=== PATIENT | female | born 1970 | race Caucasian/White ===

== ENCOUNTER → 2018-03-05 | Outpatient (CLI) | payer BC ==
--- NOTE | 2018-03-06 15:42 | MAMMOGRAPHY REPORT ---
BILATERAL DIGITAL SCREENING MAMMOGRAM TOMOSYNTHESIS WITH CAD: 03/05/2018 CLINICAL HISTORY: Routine screening. Patient has no complaints. TECHNIQUE: The study was acquired using full field digital technology and interpreted from soft copy. Breast tomosynthesis in addition to standard 2D mammography was performed. Current study was also ev aluated with a Computer Aided Detection (CAD) system. COMPARISON: Comparison is made to exams dated: 06/13/2015 mammogram, 06/05/2014 mammogram, 3 mammogram, 01/18/2012 mammogram - [facility], and 10/02/2010 mammogram. BREAST COMPOSITION: The tissue of both breasts is heterogeneously dense, which may obscure small mass es. FINDINGS: There have been mild involutional changes comparing to more remote prior mammograms. No new suspicious mass, architectural distortion or cluster of microcalcifications is seen. IMPRESSION: ACR BI-RADS CATEGORY 1: NEGATIVE There is no mammographic evidence of malignancy. A 1 year screening mammogram is recommended.( 019) The patient will receive written notification of the results. Some breast cancers are not detected with mammography. A negative mammographic report should not isabel y biopsy if a clinically suggestive mass is present. Yoli Welsh M.D. ay/:03/05/2018 16:46:58 Tiler: RT Cahru(Lou)(M)(BD), [facility] letter sent: Normal 1/2 BI-RADS Code: ACR BI-RADS Category 1: Negative
== END | disposition home or self-care (01) ==
LOC: C.MAMM 12:01
PROVIDERS: ATTEND Obstetrics & Gynecology
DX: Z12.31 Encounter for screening mammogram for malignant neoplasm of breast (principal)

== ENCOUNTER 2022-08-29 06:25 | Inpatient (IN) ==
--- NOTE | 2022-08-28 08:51 | Anesthesiology Consultation ---
Date of Service August 28, 2022 Assessment & Plan (1) Encounter for pre-operative examination: Chart Review Chart Review: Acceptable Risk for Surgery and Patient NOT seen in Pre Admission Testing -COVID screening: Per PAT nursing assessment on 08/28/22. No known COVID-19 positive contacts or current COVID-19 related symptoms. Travel screen negative. Patient vaccinated for Covid. At surgeon discretion if preop Covid testing being done. Right proximal hamstring tendon repair 09/28/21= Done under [facility] with Grade 2 view with MAC #3. ETT #7. Atraumatic DL x1. History Surgery Operation Date: 08/29/22 08:40 Proposed Procedures p Right Hip Incision and Debridement Sinus Tract and Ischial Tuberosity - Kushal Early MD Operation Date: 08/29/22 08:40 Proposed Procedures p Right Hip Irrigation and Debridement Sinus Tract and Ischial Tuberosity - Kushal Early MD Height/Weight Height: 5 ft 10 in Weight: 86.183 kg Allergies Allergy/AdvReac Type Severity Reaction Status Date / Time No Known Allergies Allergy Verified 07/12/22 20:28 Medications Home Medications Medication Instructions Recorded Confirmed Last Taken acetaminophen 325 mg tablet 650 mg PO QID PRN Pain 08/28/22 08/28/22 Unknown (Tylenol) Past Medical History Medical History (Updated 08/28/22 @ 09:19 by Bárbara Reilly PA-C) Arthritis Endometriosis stage IV History of COVID-19 End of March 2022. mild symptoms + fatigue. home test only. Past Family History Family History Grandmother (Maternal) Breast cancer Father Bladder cancer Other Diabetes Hypertension No family history of adverse response to anesthesia Denies family history of Ovarian cancer Prostate cancer Myocardial infarction Colorectal cancer Uterine cancer Past Surgical History Surgical History History of colonoscopy History of surgery on lower extremity R hamstring surgery S/P cone biopsy of cervix reports >25 yrs ago, thinks it was cone but not 100% S/P laparoscopic hysterectomy [facility]-BS, L oophorectomy 2017 for fibroids, stage 4 endo S/P wisdom tooth extraction Social History Smoking Status: Never smoker Do You Dip or Chew Tobacco: No Hx Alcohol Use: Yes alcohol intake frequency: a few times a month Hx Substance Use: No substance use type: does not use Lab Results Anesthesia Preop Results Results Anesthesia Widget: WBC 8.13 K/ul (4.8-10.8) 08/27/22 Hgb 14.3 g/dl (12.0-16.0) 08/27/22 Hct 41.7 % (37.0-47.0) 08/27/22 Plt 288 K/uL (130-400) 08/27/22 Na 136 mmol/L (136-145) 08/27/22 K 4.1 mmol/L (3.5-5.1) 08/27/22 Cl 102 mmol/L (98-107) 08/27/22 CO2 27 mmol/L (21-32) 08/27/22 BUN 13 mg/dl (6-23) 08/27/22 Creat 0.82 mg/dl (0.6-1.2) 08/27/22 Glucose Level 88 mg/dl (70-99(Fasting)) 08/27/22 Testing Electrocardiogram Date: 09/27/21 Findings: + NSR @ (80bpm) Septal infarct, age undetermined (Pt had right proximal hamstring tendon repair 09/28/21 without noted issues; no cardiac risk factors and good functional status)
[~2022-08-29 06:25] MED LIST: LR 15ML/HR IV SCH; ceFAZolin 2000MG 2,000 MG/15 ML SYR IV SCH
[2022-08-29] MEDS: [UNRECOGNIZED DRUG - REMARK] SCH ×3 (06:51→14:13)
--- NOTE | 2022-08-29 08:25 | History & Physical Bridge Note ---
Date of Service August 29, 2022 History & Physical Bridge Note I have examined the patient, reviewed the History & Physical and in the interval since the performance of the History & Physical I have noted the following changes of clinical significance: no changes noted
[2022-08-29] MEDS ORDERED: fentaNYL citrate 100 MCG/2 ML VIAL IV PRN (08:34)
[2022-08-29] MEDS ORDERED: ePHEDrine sulfate 50 MG/ML AMP IV PRN (08:34)
[2022-08-29] MEDS ORDERED: ATROPINE SULFATE 0.1 MG/ML 10ML SYR IV PRN (08:34)
[2022-08-29] MEDS ORDERED: ONDANSETRON INJ 2 MG/ML 2 ML VIAL IV PRN ×2 (08:34→13:32)
[2022-08-29] MEDS ORDERED: HYDROmorphone INJ 2 MG/ML SYR/VIAL IV PRN (08:34)
[2022-08-29] MEDS ORDERED: NEOSTIGMINE METHYLSULFATE 1 MG/ML 10ML VIAL ONE (09:01)
[2022-08-29] MEDS ORDERED: MIDAZOLAM HCL 1 MG/ML 2ML VIAL ONE (09:01)
[2022-08-29] MEDS ORDERED: fentaNYL citrate 100 MCG/2 ML VIAL ONE (09:01)
[2022-08-29] MEDS ORDERED: DEXAMETHASONE SOD INJ 4 MG/ML VIAL ONE (09:01)
[2022-08-29] MEDS ORDERED: ONDANSETRON INJ 2 MG/ML 2 ML VIAL ONE (09:01)
[2022-08-29] MEDS ORDERED: PROPOFOL IV EMULSION 10 MG/ML 20 ML VIAL IV ONE (09:01)
[2022-08-29] MEDS ORDERED: GLYCOPYRROLATE 0.2 MG/ML VIAL ONE (09:01)
[2022-08-29] MEDS ORDERED: KETOROLAC 30 MG/ML VIAL ONE (10:03)
--- NOTE | 2022-08-29 11:34 | Operative Report ---
Post Operative Report Pre & Post Diagnosis Operation Date: 08/29/22 08:40 <No data on this case meets the specified criteria> Operation Date: 08/29/22 08:40 Pre-Op Diagnosis: Right Hip Abscess Post-Op Diagnosis: Right Hip Abscess I identified the patient and participated in the time-out.: Yes Procedure Operation Date: 08/29/22 08:40 <No data on this case meets the specified criteria> Operation Date: 08/29/22 08:40 Actual Procedures p Right Hip Irrigation and Debridement Sinus Tract and Ischial Tuberosity(Right) - Kushal Early MD Surgeon Sharath Compliance Attorney Luis Fernando Estimated Blood Loss 50 Findings Consistent with Post-Op Diagnosis Specimens See attending dictation Complications none Description of Procedure Patient was taken to the operating room where anesthesia was administered. Patient was prepped and draped in the usual sterile fashion. Please see attending's operative report for specifics of the procedure. I was present for the entire case from initial patient positioning through final wound closure. Assistance was provided in tissue retraction, hemostasis, and final wound closure. Patient was taken to the recovery room in satisfactory condition. I attest to the content of the Intraoperative Record and any orders documented therein. Any exceptions are noted below.
--- NOTE | 2022-08-29 11:35 | Operative Report ---
Post Operative Report Pre & Post Diagnosis Operation Date: 08/29/22 08:40 <No data on this case meets the specified criteria> Operation Date: 08/29/22 08:40 Pre-Op Diagnosis: Right Hip Sinus Trac, Osteomyelitis of ischial tuberosity, Presence of orthopaedic Hardware Post-Op Diagnosis: Right Hip Sinus Tract, Osteomyelitis of ischial tuberosity, Presence of orthopaedic Hardware I identified the patient and participated in the time-out.: Yes Procedure Operation Date: 08/29/22 08:40 <No data on this case meets the specified criteria> Operation Date: 02 08:40 Actual Procedures p Right Hip Irrigation and Debridement to bone (ischial tuberosity), Excision of Sinus Tract, and removal of orthopaedic hardware (Right) - Kushal Early MD Surgeon Kushal Early MD Rn Neonatal Tapan Gould DO Estimated Blood Loss 50 Findings Consistent with Post-Op Diagnosis Specimens 6 sets of cultures 1. Sinus tract 2. Sinus tract #2 3. Deep sinus tract 4. Proximal hamstrings attachment 5. Ischial tuberosity bone 6. Ischial tuberosity tissue 2 tissue sample for permanent specimen 1. Superficial hip wound 2. Sinus tract Anesthesia Type General Complications none Disposition Disposition: Recovery Room Indications 52-year-old female, status post right proximal hamstrings repair in September 2021. She did well after surgery although she had a small area of drainage which eventually resolved with oral antibiotics. Never had any purulence or redness. She was doing well until around [place] of this year. That time she developed an area of drainage from her surgical wound. She had no systemic symptoms or pain at that time. Her exam did not reveal any deep areas of fluctuance and no redness or evidence of cellulitis. We therefore attempted to treat this with a local I&D. Cultures were done. We treated her with oral antibiotics and wound packing. Unfortunately however she continued to drain and had another area of her surgical wound that began to drain. MRI was obtained which demonstrated a sinus tract extending from the ischial tuberosity out to the skin. There is also some bone marrow edema within the ischial tuberosity concerning for osteomyelitis. Inflammatory labs were negative. Having failed extensive nonsurgical management she was candidate for surgical irrigation and debridement, excision of the sinus tract, and removal of orthopedic hardware. I had a long discussion with her about the risk and benefits surgery, alternative surgery, and expected outcomes. After reviewing all these she elected to proceed with surgery. All questions were answered. Informed consent was signed. Description of Procedure Patient was identified in the preoperative holding area where her surgical site was marked. She was brought back to the main operating room where general anesthesia was then administered on the hospital bed. She was carefully rolled into the prone position. All bony prominences were padded. Perioperative antibiotics were administered. She was prepped and draped in the usual sterile fashion. Prior to incision multistrand timeout was called. All in the room were in agreement. Began by ellipsing out her surgical wound with a margin of approximately 8 mm of normal skin on each side of the wound and down to a depth of approximately 2 cm. This tissue was sent for permanent specimen. Meticulous hemostasis was obtained of the subcutaneous tissues and the skin. The sinus tract was visible, and we dissected along the margins of the sinus tract to include some normal tissue on each side as we worked our way underneath the gluteus rené muscle and fascia. The sinus tract was divided into 3 sections, 2 of which were sent for culture and the third which was sent for permanent specimen. We now were all the way down onto the fascia overlying the hamstring tendons. We were able to palpate the sciatic nerve but we did not dissect it out for fear of causing damage to the nerve. We exposed the ischial tuberosity placing a sharp Hohmann along the medial side and a 2 pronged Bankart superiorly. A blunt Hohmann was placed laterally. 3 suture anchors from her previous repair were found adjacent to the ischial tuberosity and appeared to have pulled out of the bone. The sutures from the anchors were still attached to the suture anchors. The deep sinus tract adjacent to the ischial tuberosity attachment was then excised and sent for cultures. A small slit of about 1 cm was made along the lateral aspect of the hamstring tendon attachment which allowed us to access the ischial tuberosity. A pituitary rongeur was then used to remove soft tissue overlying the ischial tuberosity which was sent for culture. The bone was scraped vigorously with a curette and then the pituitary rongeur was used to obtain bony samples from the ischial tuberosity which were also sent for culture, giving us a total of 6 cultures. At this point 1 L of bulb irrigation was used to irrigate out the ischial tuberosity attachment site through the small slit. 6 L of saline was used to irrigate out the remainder of the wound. After the irrigation was complete all scrub personnel changed out their gloves for new gloves and the previously used instruments were set aside. New surgical instruments were used to close the wound. The deep fascial and subcutaneous layer was closed with #1 PDS sutures. The skin was closed with 2-0 Prolene in vertical mattress fashion. Xeroform 4 x 4 and a Tegaderm dressing was applied. Patient was then carefully rolled supine, extubated, and transferred to the recovery in stable condition. Postoperative course: Patient be admitted to the hospital for IV antibiotics. We will consult infectious diseases. We will keep her on empiric vancomycin and Zosyn for broad-spectrum IV antibiotic coverage. She can weight-bear as tolerated with a walker or crutches. Aspirin for DVT prophylaxis. I attest to the content of the Intraoperative Record and any orders documented therein. Any exceptions are noted below.
--- NOTE | 2022-08-29 11:48 | Anesthesiology Progress Note ---
Date of Service August 29, 2022 Anesthesia Post Procedure Vital Signs Vital Signs: Temp Pulse Pulse Resp BP Pulse Ox O2 Del Method 08/29/22 11:40 65 20 130/81 100 Room Air 08/29/22 11:30 85 16 136/76 100 Room Air 08/29/22 11:26 36.3 C L 84 16 134/83 100 Oxymask 08/29/22 06:51 37 C 84 18 158/97 H 98 Room Air O2 Flow Rate 08/29/22 11:40 08/29/22 11:30 08/29/22 11:26 6 08/29/22 06:51 Pain Intensity Right Leg: Pain Intensity: 1 Right Upper Leg: Pain Intensity: 0 Transfer of Care Handoff Completed per policy Notes Mental Status: alert / awake / arousable and participated in evaluation Patient Amnestic to Procedure: Yes Nausea / Vomiting: adequately controlled Pain: adequately controlled Airway Patency, RR, SpO2: stable & adequate BP & HR: stable & adequate Hydration State: stable & adequate Anesthetic Complications: no major complications apparent and Pt Satisfied with anesthetic care
--- NOTE | 2022-08-29 12:51 | Anesthesiology Progress Note ---
Date of Service August 29, 2022 Anesthesia Post Procedure Vital Signs Vital Signs: Temp Pulse Pulse Resp BP Pulse Ox O2 Del Method 08/29/22 12:30 64 18 130/85 98 Room Air 08/29/22 12:15 60 20 117/89 99 Room Air 08/29/22 12:00 36.6 C 74 18 123/83 97 Room Air 08/29/22 11:50 63 20 121/84 97 Room Air 08/29/22 11:40 65 20 130/81 100 Room Air 08/29/22 11:30 85 16 136/76 100 Room Air 08/29/22 11:26 36.3 C L 84 16 134/83 100 Oxymask 08/29/22 06:51 37 C 84 18 158/97 H 98 Room Air O2 Flow Rate 08/29/22 12:30 08/29/22 12:15 08/29/22 12:00 08/29/22 11:50 08/29/22 11:40 08/29/22 11:30 08/29/22 11:26 6 08/29/22 06:51 Pain Intensity Right Leg: Pain Intensity: 1 Right Upper Leg: Pain Intensity: 0 Transfer of Care Handoff Completed per policy Notes Mental Status: alert / awake / arousable and participated in evaluation Patient Amnestic to Procedure: Yes Nausea / Vomiting: adequately controlled Pain: adequately controlled Airway Patency, RR, SpO2: stable & adequate BP & HR: stable & adequate Hydration State: stable & adequate Anesthetic Complications: no major complications apparent and Pt Satisfied with anesthetic care
[2022-08-29] MEDS ORDERED: diphenhydrAMINE Capsule 25 MG CAP PO PRN (13:32)
[2022-08-29] MEDS ORDERED: diphenhydrAMINE 50 MG/ML VIAL IV PRN (13:32)
[2022-08-29] MEDS ORDERED: oxyCODONE HCL IR 5 MG TAB (IMMEDIATE RELEASE) PO PRN (13:32)
[2022-08-29] MEDS ORDERED: VANCOMYCIN CONSULT ACTIVE PRN (13:32)
[2022-08-29] MEDS ORDERED: bisacodyL 10 MG SUPP PR PRN (13:32)
[2022-08-29] MEDS ORDERED: HYDROmorphone INJ 1 MG/ML SYRINGE IV PRN (13:32)
[2022-08-29] MEDS ORDERED: NALOXONE HCL 0.4 MG/1 ML VIAL/CARP IV PRN (13:32)
[2022-08-29] MEDS ORDERED: HYDROmorphone INJ 0.5 MG/0.5 ML SYR IV PRN (13:32)
[2022-08-29] MEDS ORDERED: PIPERACILLIN/TAZOBACTAM 3.375 GM (over 30 mins) IV ONE (14:00)
[2022-08-29] MEDS: SODIUM CHLORIDE 0.9% 1000ML 1,000 ML IV SCH (14:22)
[2022-08-29] MEDS ORDERED: VANCOMYCIN HCL 2,250 MG in SODIUM CHLORIDE 0.9% 500 ML IV SCH (14:30)
--- NOTE | 2022-08-29 14:34 | Pharmacy Report ---
Pharmacy PK ABX Note - Date of Service August 29, 2022 - Assessment and Plan Assessment 52 year old F admitted for R hip abscess incision and drainage. Patient had hamstring tendon repair surgery in 09/2021 and since then developed this wound infection. R leg wound cultures pending. Patient was started on Zosyn therapy on admission. Post op today, she is started on Vancomycin empirically. Recently, patient was on Keflex for the same infection. Plan Vancomycin * Loading dose: 2250 mg (25 mg/kg) IV x 1 * Maintenance dose: 1250 mg IV every 12 hours * Regimen is predicted to achieve target AUC/ANILA of 400-600 mg/L.hr * Trough level will be ordered for: 08/30/22 before 3rd maintenance dose. Pharmacy will continue to follow and will adjust dose/frequency as necessary. Thank you. Pharmacy has transitioned to AUC monitoring for vancomycin. AUC/ANILA is the preferred PK/PD target and is associated with decreased risk of nephrotoxicity compared to traditional trough targets.
[2022-08-29] MEDS: ACETAMINOPHEN 500 MG TAB PO SCH ×2 (14:56→21:01)
[2022-08-29] MEDS: PIPERACILLIN/TAZOBACTAM 3.375 GM in DEXTROSE 5% 100 ML IV SCH (20:53)
[2022-08-29] MEDS: ASPIRIN 81 MG ECTAB PO SCH (20:55)
[2022-08-29] MEDS: SENNA 8.6 MG TAB PO SCH (20:55)
[2022-08-29] MEDS: DOCUSATE SODIUM 100 MG CAP PO SCH (21:08)
[2022-08-30] MEDS: SODIUM CHLORIDE 0.9% 1000ML 1,000 ML IV SCH (01:34)
[2022-08-30] MEDS: VANCOMYCIN HCL 1,250 MG in SODIUM CHLORIDE 0.9% 250 ML IV SCH ×2 (01:35→14:11)
[2022-08-30] MEDS: ACETAMINOPHEN 500 MG TAB PO SCH ×3 (05:49→21:39)
[2022-08-30] MEDS: PIPERACILLIN/TAZOBACTAM 3.375 GM in DEXTROSE 5% 100 ML IV SCH ×3 (05:51→22:55)
[2022-08-30 06:05] LABS: Basophils # (auto) 0.02 K/uL (0-0.2); Basophils % (auto) 0.2 %; Hematocrit (blood only) 31.3 % (37.0-47.0); Hemoglobin 10.9 g/dl (12.0-16.0); Immature Granulocytes # (auto) 0.06 K/uL (0.01-0.20); Immature Granulocytes % (auto) 0.6 %; Lymphocytes # (auto) 1.48 K/uL (1.2-3.4); Lymphocytes % (auto) 14.1 %; Mean Corpuscular Hemoglobin 30.6 pg (25.0-34.0); Mean Corpuscular Hgb Conc 34.8 g/dL (32.0-36.0); Mean Corpuscular Volume 87.9 fL (80.0-100.0); Mean Platelet Volume 8.9 fL (9.4-12.4); Monocytes # (auto) 0.72 K/uL (0.11-0.59); Monocytes % (auto) 6.8 %; Neutrophils # (auto) 8.24 K/uL (1.40-6.50); Neutrophils % (auto) 78.3 %; Platelet Count 226 K/uL (130-400); RDW Coefficient of Variation 12.4 % (11.5-14.5); RDW Standard Deviation 40.2 fL (36.4-46.3); Red Blood Count 3.56 M/uL (4.20-5.40); White Blood Count 10.52 K/ul (4.8-10.8)
--- NOTE | 2022-08-30 09:15 | Orthopedic Progress Note ---
Date of Service August 30, 2022 Assessment & Plan (1) Osteomyelitis of right side of pelvis: Plan: Continue empiric Vancomycin and Zosyn. Appreciate pharmacy assistance with vancomycin dosing. Follow cultures Infectious diseases consulted PICC line to be placed likely tomorrow. WBAT with walker ASA for DVT prophylaxis Case management consulted for assistance with home antibiotics, PICC line cares May discharge home once PICC line in place and she is set up for home health with antibiotics. Admission and Anticipated Discharge Date Admission Date: August 29, 2022 Subjective Patient doing well this morning. Denies fevers/chills, cp, sob. Pain under good control. Her dressing is saturated. Physical Exam Physical Exam: R hip exam: dressing was saturated with blood and was removed. No active drainage. New dressing applied. Distally NVI. Results & Data ([facility]) Vital Signs (Past 12 Hours) Vital Signs Temp Pulse Resp BP Pulse Ox O2 Del Method 08/30/22 07:24 36.6 C 67 16 126/79 100 Room Air 08/30/22 04:20 36.6 C 66 18 127/79 99 Room Air 08/29/22 23:07 36.8 C 63 18 111/70 98 Room Air Laboratory Results Gram stain did not show organisms on any of the 6 specimens. Cultures pending.
[2022-08-30] MEDS: ASPIRIN 81 MG ECTAB PO SCH ×3 (09:41→21:38)
[2022-08-30] MEDS: MULTIVITAMIN TAB PO SCH (09:41)
[2022-08-30] MEDS: DOCUSATE SODIUM 100 MG CAP PO SCH ×2 (09:42→21:38)
[2022-08-30] MEDS ORDERED: VANCOMYCIN LEVEL ONE (13:00)
[2022-08-30] MEDS: MAGNESIUM HYDROXIDE SUSP 30 ML UDC PO PRN (16:50)
[2022-08-30] MEDS: ASCORBIC ACID 500 MG TAB PO SCH (21:37)
[2022-08-30] MEDS: SENNA 8.6 MG TAB PO SCH (21:38)
[2022-08-31] MEDS: VANCOMYCIN HCL 1,250 MG in SODIUM CHLORIDE 0.9% 250 ML IV SCH (02:52)
[2022-08-31] MEDS: PIPERACILLIN/TAZOBACTAM 3.375 GM in DEXTROSE 5% 100 ML IV SCH (05:59)
[2022-08-31] MEDS: ACETAMINOPHEN 500 MG TAB PO SCH ×3 (06:02→22:10)
[2022-08-31] MEDS: MAGNESIUM HYDROXIDE SUSP 30 ML UDC PO PRN (06:09)
[2022-08-31 07:39] LABS: Creatinine Clr Calc Pharmacy 112.3 ml/min; Est GFR (African American) 113.8 ml/min; Est GFR (Non-African American) 98.2 ml/min
[2022-08-31] MEDS: ADVANCED PROBIOTIC 1250 MG CAPSULE PO SCH (09:06)
[2022-08-31] MEDS: MULTIVITAMIN TAB PO SCH (09:06)
[2022-08-31] MEDS: ASCORBIC ACID 500 MG TAB PO SCH ×2 (09:06→21:55)
[2022-08-31] MEDS: ASPIRIN 81 MG ECTAB PO SCH ×4 (09:06→21:55)
[2022-08-31] MEDS: DOCUSATE SODIUM 100 MG CAP PO SCH ×2 (09:44→22:10)
--- NOTE | 2022-08-31 10:58 | Orthopedic Progress Note ---
Date of Service August 31, 2022 Assessment & Plan (1) Osteomyelitis of right side of pelvis: Plan: Discontinue vancomycin and Zosyn We will begin giving her cefepime 2 g through the IV as recommended per infectious disease Blood cultures are still pending Consent for PICC line signed. Placement will take place after blood cultures have finalized and are negative. Prescriptions written for cefepime 2 g every 8 hours for the next 6 weeks through the PICC line. I also wrote prescriptions for weekly CBC, CMP, CRP and sed rate WBAT with walker ASA for DVT prophylaxis Pain control with p.o. medication Case management consulted for assistance with home antibiotics, PICC line cares May discharge home once PICC line in place and she is set up for dressing changes. Follow-up with [facility] orthopedics as previously scheduled With questions contact our clinic at [phone] Admission and Anticipated Discharge Date Admission Date: August 29, 2022 Subjective This 52-year-old female seen today day 2 status post Right Hip Irrigation and Debridement Sinus Tract and Ischial Tuberosity. She states she is doing very well. She denies any significant pain. She states that her only issue is that she is having a reaction to the vancomycin causing redness of her veins. She is tolerating the Zosyn without issue. Currently she denies chest pain, shortness of breath, fever, chills, sweats, nausea, vomiting, diarrhea or difficulty voiding. She also denies any numbness or tingling in her right lower extremity. She is very anxious to be discharged home hopefully early tomorrow. Review of Systems Review of Systems: All systems reviewed & are unremarkable except as noted in Subjective Physical Exam Physical Exam: Right posterior hip: Dressing was removed and a new one was applied consisting of Xeroform gauze, sterile 4 x 4's folded in half and Tegaderms. Sutures were clean dry and intact. There is no drainage from the incision site. Patient is able to perform an active straight leg raise test. She was able to flex her hip to 90 degrees with only a little tension. She had no pain with light passive internal or external hip rotation. Her quad strength is 4+ out of 5. She was neurovascular intact in the right lower extremity. There is no palpable fluctuance over or around the incision site. Results & Data ([facility]) Vital Signs (Past 12 Hours) Vital Signs Temp Pulse Resp BP Pulse Ox O2 Del Method 08/31/22 07:54 36.8 C 69 18 147/91 H 100 Room Air 08/30/22 23:15 36.6 C 68 18 120/78 96 Room Air Diagnostic Findings Laboratory Results WBC 10.52 K/ul (4.8-10.8) 08/30/22 05:20 RBC 3.56 M/uL (4.20-5.40) L 08/30/22 05:20 Hgb 10.9 g/dl (12.0-16.0) L 08/30/22 05:20 Hct 31.3 % (37.0-47.0) L 08/30/22 05:20 MCV 87.9 fL (80.0-100.0) 08/30/22 05:20 MCH 30.6 pg (25.0-34.0) 08/30/22 05:20 MCHC 34.8 g/dL (32.0-36.0) 08/30/22 05:20 RDW Std Deviation 40.2 fL (36.4-46.3) 08/30/22 05:20 RDW Coeff of [place] 12.4 % (11.5-14.5) 08/30/22 05:20 Plt Count 226 K/uL (130-400) 08/30/22 05:20 MPV 8.9 fL (9.4-12.4) L 08/30/22 05:20 Immature Gran % (Auto) 0.6 % 08/30/22 05:20 Neut % (Auto) 78.3 % 08/30/22 05:20 Lymph % (Auto) 14.1 % 08/30/22 05:20 [place] % (Auto) 6.8 % 08/30/22 05:20 Eos % (Auto) 0.0 % 08/30/22 05:20 Baso % (Auto) 0.2 % 08/30/22 05:20 Neut # (Auto) 8.24 K/uL (1.40-6.50) H 08/30/22 05:20 Lymph # (Auto) 1.48 K/uL (1.2-3.4) 08/30/22 05:20 [place] # (Auto) 0.72 K/uL (0.11-0.59) H 08/30/22 05:20 Eos # (Auto) 0.00 K/uL (0-0.50) 08/30/22 05:20 Baso # (Auto) 0.02 K/uL (0-0.2) 08/30/22 05:20 Immature Gran # (Auto) 0.06 K/uL (0.01-0.20) 08/30/22 05:20 ESR < 1 mm/hr (0-30) 08/30/22 05:20 Creatinine 0.70 mg/dl (0.6-1.2) 08/31/22 07:01 Est Cr Clr Drug Dosing 112.3 ml/min 08/31/22 07:01 Est GFR ( Amer) 113.8 ml/min 08/31/22 07:01 Est GFR (Non-Af Amer) 98.2 ml/min 08/31/22 07:01 C-Reactive Protein 0.78 mg/dl (0-0.5) H 08/30/22 05:20 SARS-CoV-2, RNA, NAAT NEGATIVE (NEGATIVE) 08/29/22 06:35
[2022-08-31] MEDS ORDERED: VANCOMYCIN LEVEL ONE (13:00)
[2022-08-31] MEDS: ERTAPENEM SODIUM 1,000 MG in SYRINGE 0 ML IV SCH (13:12)
[2022-08-31] MEDS ORDERED: CEFEPIME 2,000 MG in SYRINGE 0 ML IV SCH (14:00)
--- NOTE | 2022-08-31 17:03 | Discharge Summary ---
Date of Service August 31, 2022 Admission HPI Per Admitting Provider Patient is a 52-year-old female who is a known patient to Dr. Early. She is here for preoperative history and physical examination for irrigation and debridement of right hip sinus tract and ischial tuberosity on 08/29/[address] Early. She explains she has a history of having a hamstring tendon repaired in September 2021. She states postoperatively she had issues with the incision healing properly. She states after March she seemed to be doing well however this June she started to have an area over the incision that became red and swollen. She states she was seen in [facility] where they tried aspirating with a needle and was unsuccessful. She states the next day she was leaving to travel for the holidays to [place] and when she returned back to [place] she was seen by Dr. Early in the office. At that time she had that area of concern lanced in the office. She states the area was irrigated and she was placed on oral antibiotics. She states since that time she has continued to have drainage from the incision. She states her has been packing it and changing the dressing since July 18, 2022. She states she has mild irritation from the dressing being placed on daily. She states she has some numbness surrounding this area. She states she continues to have bloody drainage. She states she had pus initially. She had recently been tried on Bactrim however she developed a rash and became very nauseous and bloating and stomach pains so this was stopped. She was on Keflex for a period of time. She states she just recently finished her Keflex antibiotic on Saturday last week. She denies being on any antibiotic at this time. She denies any fever or chills or night sweats. She states the leg is uncomfortable at times she states its not very painful. She tries to avoid putting pressure over the area and will sit with her weight shifted. She does have some discomfort in the hamstring with bending the knee at times. She states this seems to be more recent. She feels that the right lower extremity is more weak when compared to the left. She recently had an MRI and discussed results with Dr. Early via phone. Due to the imaging findings and after a lengthy course of conservative treatment patient will be taken to the OR. She denies any history of a bleeding disorder, DVT, MRSA infection, cardiac or pulmonary issues. Admission Exam Per Admitting Provider General: Pt is alert and oriented x3. Wearing a mask. No acute distress. Well-dressed, well-nourished . HEENT: Head: Atraumatic, normocephalic. Eyes: Extraocular movements intact. Pupils equal, round, and reactive to light. Sclerae are normal. Ears: Hearing is grossly normal. Nose: Nares are patent bilaterally. Throat: Oropharynx clear. Mucous membranes moist. Good dentition. Uvula midline. Neg for erythema Neck: Supple. No lymphadenopathy. Nontender to palpation. Full range of motion. Lungs: Clear to auscultation bilaterally. No adventitious sounds. No accessory muscle use. Heart: Regular rate and rhythm. Normal S1, S2. No murmurs, rubs, or gallops appreciated. Abdomen: Soft, nontender, nondistended. Normal bowel sounds heard in all 4 quadrants. Musculoskeletal: Posterior hamstring area has a dressing with serosanguineous drainage. This is covered negative for any erythema surrounding the area. Iodoform is intact. Negative for any fluctuant areas surrounding this area however this area is tender mildly indurated. Patient is able to actively flex and extend knee. This is equal to the left. Able to fully actively dorsiflex and plantarflex ankles. Gait is normal without assistive device. Integumentary:normal in color neg for abrasion or rash Neuro: Cranial nerves II-XII grossly intact Psychiatric: Good eye contact, normal mood and affect, cooperative during exam, nonsuicidal Principal Diagnosis irrigation and debridement of right hip sinus tract and ischial tuberosity Discharge Exam Right posterior hip: Dressing was removed and a new one was applied consisting of Xeroform gauze, sterile 4 x 4's folded in half and Tegaderms. Sutures were clean dry and intact. There is no drainage from the incision site. Patient is able to perform an active straight leg raise test. She was able to flex her hip to 90 degrees with only a little tension. She had no pain with light passive internal or external hip rotation. Her quad strength is 4+ out of 5. She was neurovascular intact in the right lower extremity. There is no palpable fluctuance over or around the incision site. Discharge Data Allergies Allergy/AdvReac Type Severity Reaction Status Date / Time Sulfa (Sulfonamide Allergy Intermediate Rash Verified 08/29/22 06:47 Antibiotics) Consultations 08/29/22 13:32 Consult Infectious Diseases Routine Procedures Performed Operation Date: 08/29/22 08:40 <No data on this case meets the specified criteria> Operation Date: 08/29/22 08:40 Actual Procedures p Right Hip Irrigation and Debridement Sinus Tract and Ischial Tuberosity(Right) - Kushal Early MD Hospital Course (1) Osteomyelitis of right side of pelvis: Patient had an uneventful 2 night stay following her procedure. She states that she really has no pain. She will most likely be discharged home later this evening or early tomorrow on ertapenem 1 g through her PICC line daily for the next 6 weeks. We will also monitor her CBC, CMP, CRP and sed rate for the next 6 weeks on the weekly basis. Discontinue vancomycin and Zosyn We will begin giving her Ertapenem 1 gram daily through the PICC line as recommended per infectious disease Consent for PICC line signed. Placement will take place after blood cultures have finalized and are negative. Prescriptions written for Ertapenem 1 gram daily for the next 6 weeks through the PICC line. I also wrote prescriptions for weekly CBC, CMP, CRP and sed rate WBAT with walker ASA for DVT prophylaxis Pain control with p.o. medication Case management consulted for assistance with home antibiotics, PICC line cares May discharge home once PICC line in place and she is set up for dressing changes. Follow-up with [facility] orthopedics as previously scheduled With questions contact our clinic at [phone] Total Time Total Time Spent Total Time Spent (In Minutes): 25 mins Discharge Plan Discharge Items Patient Disposition: Home - Self-Care Reason For Visit: Right Hip Abscess Discharge Diagnosis: Right Hip Irrigation and Debridement Sinus Tract and Ischial Tuberosity Activity: As commented below Lifting: None Bathing: Keep incision dry Bathing Comment: May shower tomorrow Sexual Activity: Wait until after follow-up appointment Exercise/Sports: Wait until after follow-up appointment Driving/Machine Use: No driving until cleared by docketing specialist Weightbearing: Right weightbearing Weightbearing Comment: As tolerated with walker assistance Non-emergency contact: Surgeon Call non-emergency contact if: you have any medication questions, your pain is not controlled, your temperature is above 101.5, your wound has increased redness, your wound has increased drainage and your wound pain has increased Follow-up/Referrals: Paty Torres PA-C [Primary Care Provider] - Diet: Regular Addtl Attending Provider Instructions: Post-operative Instructions Dear Patient and Family/Friends, Before you are discharged from the hospital, it is important to know what to expect when you get home after surgery. To that end, we have created this sheet of discharge instructions which covers many commonly asked questions. Make sure you go through this sheet in its entirety with your nurse before you are discharged. Please note that we will go over the specifics of your surgery and recovery when you return for your first post-operative visit. Sincerely, Dr. Early Pain Expect to be in a fair amount of pain after surgery. Remember, our goal is not to eliminate your pain, but to make it tolerable. It is a good idea to stay ahead of your pain by taking the medications you were prescribed once you get home. Typically, the pain starts improving 3-7 days after surgery. You should start weaning off the narcotic pain medication (oxycodone, hydrocodone, hydromorphone, morphine) as soon as your pain improves. Please call our office if your pain is not adequately controlled. Ice Ice your operative site at least 5 times a day for 15-30 minutes at a time. Make sure you have a thin cloth between the ice or cooling unit and your skin to prevent marshall bite. This is especially important if you received a nerve block. Continue icing your operative site for the first 5-7 days after surgery, then as needed. Diet/Nausea/Vomiting Start by drinking clear liquids and eating crackers. If you can tolerate this, then you may resume your normal diet. If you feel nauseated or vomit, take Zofran/ondansetron (if prescribed). Please call our office if you have intractable nausea or vomiting, or, if after hours, you may go to the Emergency Room for help. Constipation Constipation is a common side effect of narcotic pain medication. If you have not had a bowel movement within 2 days after surgery, we recommend purchasing an over the counter laxative such as Milk of Magnesia, Dulcolax, or Miralax from a local pharmacy, and taking it as instructed. Call our clinic if any questions. Nerve block The anesthesia team sometimes places a nerve block to help with post-operative pain control. This results in significant numbness and inability to move the extremity. The nerve block usually wears off in 8-12 hours, but sometimes can last up to 24 hours. Please call our office if you are still unable to move your extremity after 24 hours, unless you received a pain pump to take home. Nerve blocks typically wear off quickly, so start taking pain medication as soon as you start feeling soreness near your surgical site. Weight bearing and Range of Motion. Do not bear any weight through your operative extremity immediately after surgery. If you had upper extremity surgery, do not lift anything with that arm. If you are in a knee brace, keep it locked in place until your follow-up. We will discuss your weight bearing, range of motion, and lifting restrictions in detail at your first post-operative appointment. Continuous Passive Motion (CPM) Machine If you were prescribed a CPM machine, it will start after your first post- operative appointment, at which time we will give you instructions on the range of motion settings and duration of treatment Physical therapy You will be given a prescription for physical therapy or occupational therapy at your first post-operative appointment. Typically, patients start therapy within 1 week of surgery Wound care and showering We will inspect your wound at your first post-operative visit, and may do a dressing change at that time. Most patients will be in a water-proof dressing that is removed 14 days after surgery. It is normal to see some dried blood on the dressing. Do not remove your dressing, paper strips or sutures yourself unless you are given permission. Showering is allowed the day after surgery. Do not scrub or remove any dressings. The wound should not be submerged underwater (i.e. in a bathtub or pool) until 4 weeks after surgery YOLANDA stockings If you were given white stockings, these are to be worn at all times except to shower (on both legs) for the first 2 weeks after surgery. Driving You may not drive while taking narcotic pain medication or while in a cast, splint, sling or brace. You, the patient, need to make the final determination about when you are safe to drive, however, the earliest you may consider driving after surgery is below: Hand/Wrist/Elbow Surgery: 3 days Shoulder Surgery: 2 weeks Hip,/Knee/Ankle Surgery: 4 weeks Fracture repair: 6 weeks Return to Work Your return to work depends on what surgery was done and what type of work you do. Please bring any paperwork your employer needs completed to your first post-operative visit. Also, bring a description of your job duties, as this helps us to understand what risks you may face at work. Travel Avoid long distance travel (greater than 1 hour) in airplanes and cars for the first 6 weeks after surgery. If you must travel, you need to have a Doppler ultrasound done before you travel to rule out a blood clot in your legs. Follow-up You should have a follow-up appointment already scheduled 1-2 days after surgery. If not, please contact our office to make this appointment before you leave the hospital. When to call the office It is normal to have swelling and bruising in the limb that was operated on. This will improve with time. It is also normal to have fevers for the first 2 days after surgery. Reasons you should call your doctor include: Uncontrolled pain; Nausea, vomiting, or constipation that does not improve with medication; Fevers over 101.5, chills, sweats; Drainage or bleeding from the wound; Foul odor; Spreading areas of redness; Any other concerns Addtl Surg Physician Asst Provider Instructions: You have an appt. with [facility] for labs and PICC line dressing change on at 8:30am. Please call [phone] option 5 if you need to reschedule your appt. You will need to arrange weekly appointments for this through the end of your IV therapy. [facility] Their number is [phone]. Pending Studies at Discharge: Yes Studies:: Blood culture results, placement of PICC line and administration of 3 doses of the cefepime Stand-Alone Forms: [facility], Smoking Cessation Medications and DC Order Prescriptions: New aspirin 81 mg Tablet,Delayed Release (Dr/Ec) 81 mg PO BID 30 Days Qty: 60 0RF oxycodone 5 mg Tablet 5 - 10 mg PO Q4H PRN (Reason: Postoperative pain control) Qty: 28 0RF diclofenac sodium 75 mg tablet,delayed release (DR/EC) 75 mg PO BID 30 Days Qty: 60 1RF Continued acetaminophen [Tylenol] 325 mg Tablet 650 mg PO QID PRN (Reason: Pain) Admission Data Admit Date/Time: 08/29/22 12:00 Attending Provider: Kushal Early Admit Provider: Kushal Early Primary Care Provider: Paty Torres Other Providers: Go Brown ; Jameson Berrios ; Wilian Linn I. ; Donald Gan II ; Kayleen Carver ; Canelo Palumbo ; Gregor Estrella ; John Zapata
[2022-08-31] MEDS: SENNA 8.6 MG TAB PO SCH (21:55)
[2022-09-01] MEDS: ACETAMINOPHEN 500 MG TAB PO SCH (05:55)
[2022-09-01 07:01] LABS: Creatinine Clr Calc Pharmacy 112.3 ml/min; Est GFR (African American) 113.8 ml/min; Est GFR (Non-African American) 98.2 ml/min
[2022-09-01] MEDS: ADVANCED PROBIOTIC 1250 MG CAPSULE PO SCH (07:59)
[2022-09-01] MEDS: MULTIVITAMIN TAB PO SCH (07:59)
[2022-09-01] MEDS: ASPIRIN 81 MG ECTAB PO SCH (07:59)
[2022-09-01] MEDS: ASCORBIC ACID 500 MG TAB PO SCH (07:59)
[2022-09-01] MEDS: DOCUSATE SODIUM 100 MG CAP PO SCH (08:01)
[2022-09-01] MEDS: ERTAPENEM SODIUM 1,000 MG in SYRINGE 0 ML IV SCH (11:43)
--- NOTE | 2022-09-01 11:43 | Orthopedic Progress Note ---
Date of Service September 01, 2022 Assessment & Plan (1) Osteomyelitis of right side of pelvis: Plan: She will be discharged home later today on ertapenem 1 g through her PICC line daily for the next 6 weeks. We will also monitor her CBC, CMP, CRP and sed rate for the next 6 weeks on the weekly basis. Prescriptions written for Ertapenem 1 gram daily for the next 6 weeks through the PICC line. prescriptions for weekly CBC, CMP, CRP and sed rate WBAT with walker ASA for DVT prophylaxis Pain control with p.o. medication Case management consulted for assistance with home antibiotics, PICC line cares May discharge home once PICC line in place and she is set up for dressing changes. Follow-up with [facility] orthopedics as previously scheduled With questions contact our clinic at [phone] Admission and Anticipated Discharge Date Admission Date: August 29, 2022 Subjective This 52-year-old female seen today day 3 status post Right Hip Irrigation and Debridement Sinus Tract and Ischial Tuberosity. She states she is doing very well. She denies any significant pain. Currently she denies chest pain, shortness of breath, fever, chills, sweats, nausea, vomiting, diarrhea or difficulty voiding. She also denies any numbness or tingling in her right lower extremity. She is tolerating the Ertapenem well. Physical Exam Physical Exam: Comfortable and conversant in bed R hip exam: dressing was c/d/i and left in place. Distally NVI. Results & Data ([facility]) Vital Signs (Past 12 Hours) Vital Signs Temp Pulse Resp BP Pulse Ox O2 Del Method 09/01/22 07:21 36.6 C 74 18 151/98 H 94 Room Air
--- NOTE | 2022-09-03 11:24 | Coding Query ---
CODING QUERY To promote full compliance with coding requirements relating to patient care, provider participation is requested in all cases of wagon driver salesperson uncertainty. Please assist us with the question(s) below: Coding Question(s): Patient admitted for ischial osteomyelits, draining hip sinus . S/P Hamstring Surgery last year. Surgery this admission was for debridement of the affected area. Hamstring attachments were removed during the operation. Please document, if known or suspected, the etiology of the osteomyelitis. Thanks for your help. Aries Yepez [facility] Physician's Response(s): Principal Diagnosis: "that condition established after study, to be chiefly responsible for occasioning the admission of the patient to the hospital for care." Co-Existing Principal Diagnosis: "when two or more diagnoses equally meet the criteria for principal diagnosis as determined by the circumstances of admission, diagnostic work up, and/or therapy provided, and the Alphabetic Index, Tabular List, or another coding guideline does not provide sequencing direction, any one of the diagnoses may be sequenced first." "When the physician has documented what appears to be a current diagnosis in the body of the record, but has not included the diagnosis in the final diagnostic statement, the physician should be asked whether the diagnosis should be added." (Source Coding Clinic 2 QTR90. p3-4) [place]
== END 2022-09-01 12:44 | disposition home or self-care (01) | DRG 857 ==
LOC: ASU 06:25 → 3E 12:00 → PACUINP 13:40 → 3E 14:11
PROC: M.IDHIP (2022-08-29 08:40)